=== PATIENT | female | born 1975 | race Asian ===

== ENCOUNTER 2020-11-05 15:17 | Outpatient (CLI) | payer OTHER | END 2020-11-05 23:59 | disposition home or self-care (01) | LOC: CFH 15:17 | PROVIDERS: ATTEND Obstetrics & Gynecology | DX: Z12.31 Encounter for screening mammogram for malignant neoplasm of breast (principal); Z12.39 Encounter for other screening for malignant neoplasm of breast | CPT/HCPCS: 76641; 77063; 77067 ==